=== PATIENT | male | born 1980 | race American Indian/Alaskan Native ===

== ENCOUNTER 2017-03-11 11:15 | Emergency (ER) | payer SELFPAY ==
[2017-03-11 11:40] VITALS: BP 105/75
--- NOTE | 2017-03-11 13:25 | Emergency Department Report ---
ED Lower Extremity HPI - General Chief Complaint: Extremity Injury, Lower Stated Complaint: LT FOOT SWOLLEN Time Seen by Provider: 03/11/17 13:15 Source: patient Mode of arrival: Ambulatory Limitations: No Limitations - History of Present Illness Initial Comments: couch fell on left foot yesterday Complaint: foot injury Onset/Timin -: days(s) Injury: Foot: Left Type of Injury: blunt (dropped couch on foot while moving ) Place: home Severity: moderate Severity scale (0 -10): 4 Improves With: nothing Worsens With: weight bearing, movement, palpation Context: direct blow Associated Symptoms: tingling, able to partially bear weight - Related Data Previous Rx's Medication Instructions Recorded Last Taken Type Acetaminophen/Codeine [Tylenol 1 tab PO Q6H PRN #30 tab 03/11/17 Unknown Rx /Codeine # 3 tab] Allergies Allergy/AdvReac Type Severity Reaction Status Date / Time No Known Allergies Allergy Unverified 03/11/17 11:32 ED Review of Systems ROS: Stated complaint: LT FOOT SWOLLEN Other details as noted in HPI Constitutional: denies: chills, fever Eyes: denies: eye pain, eye discharge, vision change ENT: denies: ear pain, throat pain Respiratory: denies: cough, shortness of breath, wheezing Cardiovascular: denies: chest pain, palpitations Endocrine: no symptoms reported Gastrointestinal: denies: abdominal pain, nausea, diarrhea Genitourinary: denies: urgency, dysuria Musculoskeletal: myalgia, other (left foot pain and swelling ). denies: back pain Skin: denies: rash, lesions Neurological: denies: headache, weakness, paresthesias Psychiatric: denies: anxiety, depression Hematological/Lymphatic: denies: easy bleeding, easy bruising ED Past Medical Hx - Past Medical History Previous Medical History?: No - Surgical History Additional Surgical History: RIGHT KNEE SURGERY - Social History Smoking Status: Current Every Day Smoker Substance Use Type: Alcohol - Medications Home Medications: Home Medications Medication Instructions Recorded Confirmed Last Taken Type Acetaminophen/Codeine [Tylenol 1 tab PO Q6H PRN #30 tab 03/11/17 Unknown Rx /Codeine # 3 tab] ED Physical Exam - General Limitations: No Limitations General appearance: alert, in no apparent distress - Head Head exam: Present: atraumatic, normocephalic - Eye Eye exam: Present: normal appearance - ENT ENT exam: Present: mucous membranes moist - Neck Neck exam: Present: normal inspection - Respiratory Respiratory exam: Present: normal lung sounds bilaterally. Absent: respiratory distress - Cardiovascular Cardiovascular Exam: Present: regular rate, normal rhythm. Absent: systolic murmur, diastolic murmur, rubs, gallop - GI/Abdominal GI/Abdominal exam: Present: soft, normal bowel sounds - Rectal Rectal exam: Present: deferred - Expanded Lower Extremity Exam Left Hip exam: Present: normal inspection, full ROM Knee exam: Present: normal inspection, full ROM Lower Leg exam: Present: normal inspection, full ROM Ankle exam: Present: normal inspection, full ROM Foot/Toe exam: Present: tenderness, swelling, tenderness at base of 5th metatarsal. Absent: abrasion, laceration, ecchymosis, deformity, crepidus, dislocation, erythema, amputation, puncture wound, foreign body, calcaneal tenderness, nail avulsion, subungual hematoma Neuro vascular tendon exam: Absent: no vascular compromise, pulse deficit, abnormal cap refill, motor deficit, sensory deficit, tendon deficit, extremity cold to touch, pallor, abnormal 2-point discrimination, decreased fine/light touch, foot drop, peroneal nerve deficit, significant pain with passive ROM of distal joint Gait: Positive: observed and limited by pain - Back Exam Back exam: Present: normal inspection - Neurological Exam Neurological exam: Present: alert, oriented X3, CN II-XII intact, abnormal gait , reflexes normal. Absent: motor sensory deficit - Psychiatric Psychiatric exam: Present: normal affect, normal mood - Skin Skin exam: Present: warm, dry, intact, normal color. Absent: rash ED Course Vital Signs 03/11/17 11:35 Temperature 98.2 F Pulse Rate 75 Respiratory 17 Rate Blood Pressure 105/75 O2 Sat by Pulse 98 Oximetry ED Lower Extremity MDM - Radiology Data Radiology results: image reviewed closed nondisplaceed 5th metatarsal fx - Medical Decision Making pt is a 36 y/o aam who presents complaining of left foot pain s/p cough v/s foot yesterday as " I dropped a couch on my foot moving yesterday" pain and swelling today, exam mild left lateral dorsal foot swelling ppepb+ rom restricted by pain pt does tolerated partial weight bearing, xray: closed 5th metarsal fx, plan ortho shoe, follow up with ortho on next week pt verbalized agreement and understanding with same, pt prefers weight bearing with ortho shoe no crutches demonstrated safe use of same, pt for d/c to self at this time pt ambulatory gait steady with ortho shoe Critical care attestation.: If time is entered above; I have spent that time in minutes in the direct care of this critically ill patient, excluding procedure time. ED Disposition Clinical Impression: Closed fracture of fifth metatarsal bone of left foot Qualifiers: Encounter type: initial encounter Fracture alignment: nondisplaced Qualified Code(s): S92.355A - Nondisplaced fracture of fifth metatarsal bone, left foot, initial encounter for closed fracture Disposition: TO HOME OR SELFCARE Is pt being admited?: No Does the pt Need Aspirin: No Condition: Good Instructions: Foot Fracture in Adults (ED) Additional Instructions: follow up with orthopedics as directed. Dr. Rosario [phone] Prescriptions: Acetaminophen/Codeine [Tylenol /Codeine # 3 tab] 1 tab PO Q6H PRN #30 tab PRN Reason: Pain Referrals: PRIMARY CARE, [Primary Care Provider] - 3-5 Days Time of Disposition: 14:04
[2017-03-11] MEDS ORDERED: NORCO 5/325 PO ONE (13:49)
--- NOTE | 2017-03-11 15:38 | XRay Report ---
LEFT FOOT RADIOGRAPHS INDICATION: Left foot injury, swelling. COMPARISON: None similar. FINDINGS: AP, lateral and oblique left foot radiographs demonstrate a spiral fifth metatarsal shaft fracture with cortical offset of approximately 2 mm. No joint involvement. Mild overlying soft tissue swelling may be present dorsally. Normal remainder exam. CONCLUSION: Left fifth metatarsal acute fracture, as detailed above. Thank you for the opportunity to participate in this patient's care.
== END 2017-03-11 14:10 | disposition home or self-care (01) ==
LOC: ED 11:15
DX: S92.352A Displaced fracture of fifth metatarsal bone, left foot, initial encounter for closed fracture (principal); F17.210 Nicotine dependence, cigarettes, uncomplicated; W20.8XXA Other cause of strike by thrown, projected or falling object, initial encounter; Y93.89 Activity, other specified; Y92.89 Other specified places as the place of occurrence of the external cause; Y99.8 Other external cause status
CPT/HCPCS: 99283

== ENCOUNTER 2021-08-13 14:00 | Emergency (ER) | payer SELFPAY ==
[2021-08-13 14:14] VITALS: BP 154/85
--- NOTE | 2021-08-13 14:29 | Emergency Department Report ---
- General Chief Complaint: Upper Respiratory Infection Stated Complaint: COVID LIKE SYMPTOMS Time Seen by Provider: 08/13/21 14:13 Source: patient Mode of arrival: Ambulatory Limitations: No Limitations - History of Present Illness Initial Comments: This is a 40-year-old healthy male who presents the emergency department with a chief complaint of generalized body aches, fever, chills, cough, congestion, malaise over the past few days. Patient denies any known past medical history, current medication use or known allergies to medications. He denies any sick contacts. Does report he is a daily smoker. - Related Data Previous Rx's Medication Instructions Recorded Last Taken Type Acetaminophen/Codeine [Tylenol 1 tab PO Q6H PRN #30 tab 03/11/17 Unknown Rx /Codeine # 3 tab] Albuterol Sulfate [Proair 90 mcg IH Q4HR #1 aer.pow.ba 08/13/21 Unknown Rx Respiclick] Benzonatate [Tessalon Perles] 100 mg PO Q8HR #30 capsule 08/13/21 Unknown Rx Ibuprofen [Motrin 800 MG tab] 800 mg PO Q8HR PRN #30 tablet 08/13/21 Unknown Rx Allergies Allergy/AdvReac Type Severity Reaction Status Date / Time No Known Allergies Allergy Unverified 03/11/17 11:32 ED Review of Systems ROS: Stated complaint: COVID LIKE SYMPTOMS Other details as noted in HPI Comment: All other systems reviewed and negative Constitutional: denies: chills, fever Eyes: denies: eye pain, eye discharge, vision change ENT: throat pain, congestion. denies: ear pain Respiratory: cough. denies: shortness of breath, wheezing Cardiovascular: denies: chest pain, palpitations Endocrine: no symptoms reported Gastrointestinal: denies: abdominal pain, nausea, diarrhea Genitourinary: denies: urgency, dysuria Musculoskeletal: as per HPI, myalgia. denies: back pain, joint swelling, arthralgia Skin: denies: rash, lesions Neurological: denies: headache, weakness, paresthesias Psychiatric: denies: anxiety, depression Hematological/Lymphatic: denies: easy bleeding, easy bruising ED Past Medical Hx - Surgical History Additional Surgical History: RIGHT KNEE SURGERY - Family History Family history: no significant - Social History Smoking Status: Current Every Day Smoker Substance Use Type: Alcohol - Medications Home Medications: Home Medications Medication Instructions Recorded Confirmed Last Taken Type Acetaminophen/Codeine [Tylenol 1 tab PO Q6H PRN #30 tab 03/11/17 Unknown Rx /Codeine # 3 tab] Albuterol Sulfate [Proair 90 mcg IH Q4HR #1 aer.pow.ba 08/13/21 Unknown Rx Respiclick] Benzonatate [Tessalon Perles] 100 mg PO Q8HR #30 capsule 08/13/21 Unknown Rx Ibuprofen [Motrin 800 MG tab] 800 mg PO Q8HR PRN #30 tablet 08/13/21 Unknown Rx ED Physical Exam - General Limitations: No Limitations General appearance: alert, in no apparent distress - Head Head exam: Present: atraumatic, normocephalic - Eye Eye exam: Present: normal appearance, PERRL, EOMI Pupils: Present: normal accommodation - ENT ENT exam: Present: normal exam, normal orophraynx, mucous membranes moist - Neck Neck exam: Present: normal inspection, full ROM. Absent: tenderness, meningismus - Respiratory Respiratory exam: Present: normal lung sounds bilaterally. Absent: respiratory distress, wheezes, rales, rhonchi, stridor - Cardiovascular Cardiovascular Exam: Present: regular rate, normal rhythm, normal heart sounds. Absent: systolic murmur, diastolic murmur, rubs, gallop - GI/Abdominal GI/Abdominal exam: Present: soft, normal bowel sounds. Absent: distended, tenderness, guarding, rebound, rigid - Rectal Rectal exam: Present: deferred - Extremities Exam Extremities exam: Present: normal inspection, full ROM, normal capillary refill. Absent: tenderness, calf tenderness (No posterior calf tenderness) - Back Exam Back exam: Present: normal inspection, full ROM. Absent: tenderness, CVA tenderness (R), CVA tenderness (L) - Neurological Exam Neurological exam: Present: alert, oriented X3, normal gait - Psychiatric Psychiatric exam: Present: normal affect, normal mood - Skin Skin exam: Present: warm, dry, intact, normal color. Absent: rash ED Course Vital Signs 08/13/21 14:11 Temperature 98.9 F Pulse Rate 108 H Respiratory 18 Rate Blood Pressure 154/85 [Left] O2 Sat by Pulse 99 Oximetry ED Medical Decision Making - Medical Decision Making Patient nontoxic no acute distress. Vital signs are stable. He is a low risk by Wells criteria for PE and has no chest pain or shortness of breath. Patient symptoms are consistent with a viral syndrome and due to the current viral pandemic I have a high suspicion for COVID-19. Recommended CDC guidelines including social distancing, frequent handwashing, wearing his mask and that he would need to be out of work for the next 5 days which I will write him a work note. Recommend supportive treatment and return to ER with any change or worsening symptoms. Recommend he follow-up his primary care doctor. He verbalized understand the diagnosis, treatment plan and follow-up structures all his questions were answered. - Differential Diagnosis Pneumonia, COVID-19, influenza Critical care attestation.: If time is entered above; I have spent that time in minutes in the direct care of this critically ill patient, excluding procedure time. ED Disposition Clinical Impression: Suspected COVID-19 virus infection, Acute viral syndrome Disposition: HOME / SELF CARE / HOMELESS Is pt being admited?: No Condition: Stable Instructions: Viral Respiratory Infection, [id number] Prescriptions: Ibuprofen [Motrin 800 MG tab] 800 mg PO Q8HR PRN #30 tablet PRN Reason: pain, fever Albuterol Sulfate [Proair Respiclick] 90 mcg IH Q4HR #1 aer.pow.ba Benzonatate [Tessalon Perles] 100 mg PO Q8HR #30 capsule Referrals: PRIMARY CARE, [Primary Care Provider] - 3-5 Days [facility] [Provider Group] - 3-5 Days Forms: Work/School Release Form(ED) Time of Disposition: 14:27
== END 2021-08-13 14:48 | disposition home or self-care (01) ==
LOC: ED 14:00
DX: B34.9 Viral infection, unspecified (principal); Z20.822 Contact with and (suspected) exposure to COVID-19; F17.200 Nicotine dependence, unspecified, uncomplicated; Z72.89 Other problems related to lifestyle
CPT/HCPCS: 99282

== ENCOUNTER 2022-01-14 11:07 | Emergency (ER) | payer SELFPAY ==
[2022-01-14 11:39] VITALS: BP 118/78
[2022-01-14] MEDS ORDERED: TETANUS,DIPH,PERTUSS(ACELL) VACCINE 0.5 ML SYRINGE IM ONE (13:17)
--- NOTE | 2022-01-14 13:47 | Emergency Department Report ---
- General Chief Complaint: Laceration/Recheck/Suture Stated Complaint: LACERATION TO HAND Time Seen by Provider: 01/14/22 12:58 Source: patient Mode of arrival: Ambulatory Limitations: No Limitations - History of Present Illness Initial Comments: 41 yo black male presents to ed for evaluation right hand laceration. He states that he was cutting open boxes at work and accidentally cut his hand. Bleeding controlled. Tdap is not up to date. -: Sudden, This morning Extremity Location: Right: Hand Place: work Patient Tetanus UTD: No Context: accidental Associated Symptoms: none - Related Data Previous Rx's Medication Instructions Recorded Last Taken Type Acetaminophen/Codeine [Tylenol 1 tab PO Q6H PRN #30 tab 03/11/17 Unknown Rx /Codeine # 3 tab] Albuterol Sulfate [Proair 90 mcg IH Q4HR #1 aer.pow.ba 08/13/21 Unknown Rx Respiclick] Benzonatate [Tessalon Perles] 100 mg PO Q8HR #30 capsule 08/13/21 Unknown Rx Ibuprofen [Motrin 800 MG tab] 800 mg PO Q8HR PRN #30 tablet 08/13/21 Unknown Rx cephALEXin [Keflex] 500 mg PO BID #14 cap 01/14/22 Unknown Rx Allergies Allergy/AdvReac Type Severity Reaction Status Date / Time No Known Allergies Allergy Verified 01/14/22 11:39 ED Review of Systems ROS: Stated complaint: LACERATION TO HAND Other details as noted in HPI Comment: All other systems reviewed and negative Constitutional: denies: fever Respiratory: denies: shortness of breath Cardiovascular: denies: chest pain Gastrointestinal: denies: abdominal pain, nausea, vomiting Neurological: denies: headache Hematological/Lymphatic: denies: easy bleeding ED Past Medical Hx - Surgical History Additional Surgical History: RIGHT KNEE SURGERY - Social History Smoking Status: Current Every Day Smoker Substance Use Type: Alcohol - Medications Home Medications: Home Medications Medication Instructions Recorded Confirmed Last Taken Type Acetaminophen/Codeine [Tylenol 1 tab PO Q6H PRN #30 tab 03/11/17 Unknown Rx /Codeine # 3 tab] Albuterol Sulfate [Proair 90 mcg IH Q4HR #1 aer.pow.ba 08/13/21 Unknown Rx Respiclick] Benzonatate [Tessalon Perles] 100 mg PO Q8HR #30 capsule 08/13/21 Unknown Rx Ibuprofen [Motrin 800 MG tab] 800 mg PO Q8HR PRN #30 tablet 08/13/21 Unknown Rx cephALEXin [Keflex] 500 mg PO BID #14 cap 01/14/22 Unknown Rx ED Physical Exam - General Limitations: No Limitations General appearance: alert, in no apparent distress - Head Head exam: Present: atraumatic, normocephalic - Eye Eye exam: Present: normal appearance. Absent: conjunctival injection - Neck Neck exam: Present: normal inspection - Respiratory Respiratory exam: Absent: respiratory distress - Cardiovascular Cardiovascular Exam: Present: regular rate - GI/Abdominal GI/Abdominal exam: Absent: distended - Expanded Upper Extremity Exam Right Shoulder Exam: Present: normal inspection Upper Arm exam: Present: normal inspection Elbow exam: Present: normal inspection Forearm Wrist exam: Present: normal inspection Hand Wrist exam: Present: laceration Neuro motor exam: Present: thumb opposition intact, thumb IP flexion intact, thumb adduction intact, fingers 2-5 abduction intact Vascular: Present: normal capillary refill, radial pulse. Absent: vascular compromise, Pallo, pulse deficit radial art - Back Exam Back exam: Present: normal inspection - Neurological Exam Neurological exam: Present: alert, oriented X3 - Psychiatric Psychiatric exam: Present: normal affect, normal mood - Skin Skin exam: Present: warm, dry, normal color ED Course Vital Signs 01/14/22 11:37 Temperature 98.6 F Pulse Rate 91 H Respiratory 16 Rate Blood Pressure 118/78 [Right] O2 Sat by Pulse 98 Oximetry - Laceration /Wound Repair Right Hand Wound Location: upper extremity (posterior right hand) Wound Length (cm): 7 Wound's Depth, Shape: superficial, linear Wound Explored: clean Irrigated w/ Saline (ccs): 80 Betadine Prep?: No Anesthesia: 1% Lidocaine Volume Anesthetic (ccs): 5 Suture Size/Type: 4:0 (Vicryl) Number of Sutures: 7 Layer Closure?: No Sterile Dressing Applied?: Yes Progress: Patient tolerated well. ED Medical Decision Making - Medical Decision Making 41 yo black male presents to ed for evaluation right hand laceration. He states that he was cutting open boxes at work and accidentally cut his hand. Bleeding controlled. Tdap is not up to date. Right hand laceration repaired per my procedure note. Tdap updated. Patient states that his hand get really dirty at work, so he will be given 7 day coarse of Keflex. HE is advised to follow up with hand surgeon if worsening symptoms or any signs of infection noted. he is advised to return to ED as needed. He verbalized understanding of and agreement with plan of care. Critical care attestation.: If time is entered above; I have spent that time in minutes in the direct care of this critically ill patient, excluding procedure time. ED Disposition Clinical Impression: Laceration of right hand Qualifiers: Encounter type: initial encounter Foreign body presence: without foreign body Qualified Code(s): S61.411A - Laceration without foreign body of right hand, initial encounter Disposition: HOME / SELF CARE / HOMELESS Is pt being admited?: No Does the pt Need Aspirin: No Condition: Stable Instructions: Laceration Care, Adult, [id number], Sutured Wound Care, [id number] Additional Instructions: Take medication as prescribed. Keep sutures in until they dissolve in 2 to 3 weeks from now. Follow-up with hand surgeon if worsening symptoms. Return to the emergency department immediately if you notice any signs of infection. Prescriptions: cephALEXin [Keflex] 500 mg PO BID #14 cap Referrals: HUNG WARE MD [Referring] - 3-5 Days Forms: Work/School Release Form(ED) Time of Disposition: 13:47
== END 2022-01-14 13:47 | disposition home or self-care (01) ==
LOC: ED 11:07
DX: S61.411A Laceration without foreign body of right hand, initial encounter (principal); F17.200 Nicotine dependence, unspecified, uncomplicated; Z72.89 Other problems related to lifestyle; Z79.899 Other long term (current) drug therapy; W26.8XXA Contact with other sharp object(s), not elsewhere classified, initial encounter; Y93.89 Activity, other specified; Y92.89 Other specified places as the place of occurrence of the external cause; Y99.8 Other external cause status
CPT/HCPCS: 90471; 90715; 99282

== ENCOUNTER 2022-01-19 13:31 | Emergency (ER) | payer SELFPAY ==
[2022-01-19 14:45] VITALS: BP 136/87
== END 2022-01-19 20:04 | disposition left against medical advice (07) ==
LOC: ED 13:31
DX: S69.90XA Unspecified injury of unspecified wrist, hand and finger(s), initial encounter (principal); Z53.21 Procedure and treatment not carried out due to patient leaving prior to being seen by health care provider; X58.XXXA Exposure to other specified factors, initial encounter; Y93.89 Activity, other specified; Y92.89 Other specified places as the place of occurrence of the external cause; Y99.8 Other external cause status